=== PATIENT | female | born 1995 | race Caucasian/White ===

== ENCOUNTER 2016-08-06 23:34 | Emergency (ER) | payer BC, OTHER ==
[~2016-08-06] VITALS: Ht 162.6 cm; Wt 71.2 kg
[~2016-08-06 23:34] MED LIST: BEYATAB PO; MULTCAP PO; [UNRECOGNIZED DRUG - OTHER] PO
[2016-08-07 00:29] VITALS: BP 129/82
[2016-08-07] MEDS ORDERED: NS 1,000 ML IV ONE (01:00)
[2016-08-07] MEDS ORDERED: METOCLOPRAMIDE INJ 10MG/2ML VIAL (J2765) IV ONE (01:00)
[2016-08-07 01:21] LABS: BASO % 0.3 % (0.0-1.0); EOS # 0.2 K/mm3 (0.0-0.50); EOS % 1.2 % (0.0-3.0); LARGE UNSTAINED CELL # 0.1 K/mm3 (0.0-0.4); LARGE UNSTAINED CELL % 0.5 % (0.0-4.0); LYMPH # 0.6 K/mm3 (1.5-6.5); LYMPH % 3.7 % (24.0-44.0); MEAN CORPUSCULAR HGB CONC 32.7 g/dl (32.0-36.5); MEAN CORPUSCULAR VOLUME 88.6 fl (80.0-96.0); MONO # 0.6 K/mm3 (0.0-0.8); MONO % 3.7 % (0.0-5.0); NEUTROPHILS # 14.2 K/mm3 (1.8-7.7); NEUTROPHILS % 90.6 % (36.0-66.0); PLATELET COUNT, AUTOMATED 196 k/mm3 (150-450); RED CELL DISTRIBUTION WIDTH 12.2 % (11.5-14.5); WHITE BLOOD COUNT 15.6 K/mm3 (4.0-10.0)
[2016-08-07 01:49] LABS: CONTROL LINE HCG INT CTR LINE PRESENT
[2016-08-07 02:03] LABS: ALBUMIN 3.8 GM/DL (3.2-5.2); ALBUMIN/GLOBULIN RATIO 1.15 (1.00-1.93); ALKALINE PHOSPHATASE 63 U/L (45-117); ALT/SGPT 20 U/L (12-78); ANION GAP 9 MEQ/L (8-16); AST/SGOT 19 U/L (15-37); BILIRUBIN,DIRECT 0.3 MG/DL (0.0-0.2); BLOOD UREA NITROGEN 13 MG/DL (7-18); CALCIUM LEVEL 8.6 MG/DL (8.5-10.1); CARBON DIOXIDE LEVEL 23 MEQ/L (21-32); CHLORIDE LEVEL 111 MEQ/L (98-107); CREATININE FOR GFR 0.91 MG/DL (0.55-1.02); GLOMERULAR FILTRATION RATE > 60.0 (>60); GLUCOSE, FASTING 125 MG/DL (70-105); POTASSIUM SERUM 4.1 MEQ/L (3.5-5.1); SODIUM LEVEL 143 MEQ/L (136-145); TOTAL PROTEIN 7.1 GM/DL (6.4-8.2)
[2016-08-07] MEDS ORDERED: REGL10TA6 PO (02:40)
[2016-08-07] MEDS ORDERED: ZOFR4TAB3 PO (02:40)
== END 2016-08-07 03:37 | disposition home or self-care (01) ==
LOC: EDBD 23:34 → M ED 08-07 00:35
DX: A08.4 Viral intestinal infection, unspecified (principal); Z79.899 Other long term (current) drug therapy
CPT/HCPCS: 36415; 80048; 80076; 83690; 84703; 85025; 93041; 96374; 99284; J2765

== ENCOUNTER → 2016-08-31 | Outpatient (REF) | payer OTHER ==
[~2016-08-31] MED LIST changes: +REGL10TA6 PO; +ZOFR4TAB3 PO
== END ==
LOC: M SFHCWAGY 16:04
PROVIDERS: ATTEND Nurse Practitioner Family
DX: Z12.4 Encounter for screening for malignant neoplasm of cervix (principal)

== ENCOUNTER 2016-10-23 16:10 | Emergency (ER) | payer BC, OTHER ==
[~2016-10-23] VITALS: Ht 162.6 cm; Wt 68.9 kg
[2016-10-23] MEDS ORDERED: NS 1,000 ML IV ONE (16:45)
[2016-10-23] MEDS ORDERED: ONDANSETRON 4MG/2ML VIAL (J2405) IV ONE (16:45)
[2016-10-23] MEDS ORDERED: KETOROLAC 30 MG/ML VIAL (J1885) IV ONE (16:45)
[2016-10-23] MEDS ORDERED: MORPHINE 4 MG/ML 1ML SYRINGE IV ONE (17:15)
[2016-10-23 17:33] LABS: MEAN CORPUSCULAR HEMOGLOBIN 27.8 pg (27.0-33.0); MEAN CORPUSCULAR HGB CONC 32.9 g/dl (32.0-36.5); MEAN CORPUSCULAR VOLUME 84.7 fl (80.0-96.0); PLATELET COUNT, AUTOMATED 209 k/mm3 (150-450); RED CELL DISTRIBUTION WIDTH 13.1 % (11.5-14.5); WHITE BLOOD COUNT 12.6 K/mm3 (4.0-10.0)
[2016-10-23 17:48] LABS: ALBUMIN 3.4 GM/DL (3.2-5.2); ALBUMIN/GLOBULIN RATIO 0.85 (1.00-1.93); ALKALINE PHOSPHATASE 66 U/L (45-117); ALT/SGPT 21 U/L (12-78); AMYLASE 53 U/L (25-115); ANION GAP 5 MEQ/L (8-16); AST/SGOT 19 U/L (15-37); BILIRUBIN,DIRECT 0.1 MG/DL (0.0-0.2); BILIRUBIN,TOTAL 0.4 MG/DL (0.2-1.0); BLOOD UREA NITROGEN 13 MG/DL (7-18); CALCIUM LEVEL 8.2 MG/DL (8.5-10.1); CARBON DIOXIDE LEVEL 27 MEQ/L (21-32); CHLORIDE LEVEL 108 MEQ/L (98-107); CREATININE FOR GFR 0.84 MG/DL (0.55-1.02); GLOMERULAR FILTRATION RATE > 60.0 (>60); GLUCOSE, FASTING 102 MG/DL (70-105); POTASSIUM SERUM 3.2 MEQ/L (3.5-5.1); SODIUM LEVEL 140 MEQ/L (136-145); TOTAL PROTEIN 7.4 GM/DL (6.4-8.2)
[2016-10-23 18:06] LABS: BANDS 6 % (< 11); EOSINOPHILS 3 % (0-5)
[2016-10-23] MEDS ORDERED: POTASSIUM CHLORIDE 10 MEQ SR TABLET PO ONE (18:15)
[2016-10-23] MEDS ORDERED: ISOVUE-370 76% 100ML VIAL (Q9967) As Ordered ONE (18:17)
[2016-10-23] MEDS ORDERED: POTASSIUM CHLORIDE 10% LIQ 20 MEQ/15 ML UDC PO ONE (18:30)
--- NOTE | 2016-10-23 18:44 | REP ---
Clinical: Right-sided abdominal pain with nausea and vomiting. Technique: Axial contrast enhanced images from the lung bases to the pubic symphysis using 100 ml Isovue 370 intravenous contrast material with coronal and sagittal re-formations. Findings: Fluid-filled small and large bowel is most compatible with enterocolitis. No obstruction. No free air. No free fluid or drainable collection identified. Liver, spleen, pancreas, gallbladder, bilateral adrenal glands and kidneys are normal. Pelvis demonstrates normal bladder and age-appropriate uterus/adnexa. No pelvic fluid or ascites. No free air. No adenopathy. Vasculature is normal. Surrounding musculoskeletal structures are intact. Lung bases are clear. Impression: Fluid-filled small large bowel compatible with acute enterocolitis. Signed by Willie Pruitt MD 10/23/2016 06:36 P
[2016-10-23 19:17] VITALS: BP 122/74
--- NOTE | 2016-11-05 14:22 | REP ---
Clinical: Acute abdominal pain. Technique: Estes scale ultrasound using curved array transducer. Findings: The liver and pancreas are normal in contour, size, and echogenicity without focal hepatic or pancreatic lesions identified. The gallbladder is normal without gallstones, wall thickening or pericholecystic fluid. No biliary ductal dilatation is appreciated, and the common bile duct measures 3.0 mm diameter. The right kidney is normal in reniform shape without hydronephrosis and measures 10.9 x 4.7 x 4.6 cm. No ascites. Visualized portions of the abdominal aorta normal. Impression: Normal right upper quadrant and gallbladder abdominal ultrasound. Signed by Willie Pruitt MD 10/23/2016 05:48 P
== END 2016-10-23 19:25 | disposition home or self-care (01) ==
LOC: M ED 18:26
DX: A09 Infectious gastroenteritis and colitis, unspecified (principal); E87.6 Hypokalemia; G43.909 Migraine, unspecified, not intractable, without status migrainosus; Z95.818 Presence of other cardiac implants and grafts; Z79.899 Other long term (current) drug therapy
CPT/HCPCS: 74177; 76705; 80048; 80076; 81001; 81025; 82150; 83690; 85025; 96374; 96375; 99284; J2405; Q9967

== ENCOUNTER 2016-11-06 16:55 | Emergency (ER) | payer BC, OTHER ==
[~2016-11-06] VITALS: Ht 162.6 cm; Wt 69.9 kg
[2016-11-06] MEDS ORDERED: NS 1,000 ML IV SCH (18:02)
[2016-11-06] MEDS ORDERED: ONDANSETRON 4MG/2ML VIAL (J2405) IV ONE (18:15)
[2016-11-06] MEDS ORDERED: MORPHINE 4 MG/ML 1ML SYRINGE IV ONE (18:15)
[2016-11-06] MEDS ORDERED: PANTOPRAZOLE 40MG INJ (PROTONIX) (C9113) IV ONE (18:15)
[2016-11-06 18:29] LABS: BASO % 0.2 % (0.0-1.0); EOS # 0.2 K/mm3 (0.0-0.50); EOS % 1.6 % (0.0-3.0); LARGE UNSTAINED CELL # 0.1 K/mm3 (0.0-0.4); LARGE UNSTAINED CELL % 0.5 % (0.0-4.0); LYMPH # 1.4 K/mm3 (1.5-6.5); LYMPH % 9.6 % (24.0-44.0); MEAN CORPUSCULAR HEMOGLOBIN 27.9 pg (27.0-33.0); MEAN CORPUSCULAR HGB CONC 32.7 g/dl (32.0-36.5); MEAN CORPUSCULAR VOLUME 85.2 fl (80.0-96.0); MONO # 0.7 K/mm3 (0.0-0.8); MONO % 4.7 % (0.0-5.0); NEUTROPHILS # 12.2 K/mm3 (1.8-7.7); NEUTROPHILS % 83.4 % (36.0-66.0); PLATELET COUNT, AUTOMATED 239 k/mm3 (150-450); RED CELL DISTRIBUTION WIDTH 13.6 % (11.5-14.5); WHITE BLOOD COUNT 14.6 K/mm3 (4.0-10.0)
[2016-11-06 18:48] LABS: CONTROL LINE HCG INT CTR LINE PRESENT
[2016-11-06 18:56] LABS: ALBUMIN 3.6 GM/DL (3.2-5.2); ALBUMIN/GLOBULIN RATIO 0.92 (1.00-1.93); ALKALINE PHOSPHATASE 68 U/L (45-117); ALT/SGPT 28 U/L (12-78); ANION GAP 6 MEQ/L (8-16); AST/SGOT 19 U/L (15-37); BILIRUBIN,DIRECT 0.2 MG/DL (0.0-0.2); BILIRUBIN,TOTAL 0.8 MG/DL (0.2-1.0); BLOOD UREA NITROGEN 14 MG/DL (7-18); CARBON DIOXIDE LEVEL 28 MEQ/L (21-32); CHLORIDE LEVEL 108 MEQ/L (98-107); CREATININE FOR GFR 0.83 MG/DL (0.55-1.02); GLOMERULAR FILTRATION RATE > 60.0 (>60); GLUCOSE, FASTING 91 MG/DL (70-105); POTASSIUM SERUM 3.6 MEQ/L (3.5-5.1); SODIUM LEVEL 142 MEQ/L (136-145); TOTAL PROTEIN 7.5 GM/DL (6.4-8.2)
[2016-11-06] MEDS ORDERED: GASTROGRAFIN SOLUTION 30ML (Q9963) As Ordered ONE (19:19)
[2016-11-06] MEDS ORDERED: GASTROGRAFIN SOLUTION 30ML (Q9963) PO ONE ×2 (19:30)
[2016-11-06] MEDS ORDERED: ISOVUE-370 76% 100ML VIAL (Q9967) As Ordered ONE (20:45)
[2016-11-06] MEDS ORDERED: GI COCKTAIL 50ML BTL(HYOSCYAMINE/MAALOX/LIDOCAINE VISCOUS)(1:3:1) PO ONE (21:00)
--- NOTE | 2016-11-06 21:20 | REPUSA ---
CT of the abdomen and pelvis with contrast Clinical statement: Pain. Technique: Multiple axial CT images were obtained from the base of the lungs through the floor of the pelvis utilizing 5 mm axial slices after administration of oral and nonionic intravenous contrast. C oronal and sagittal reconstructions were also obtained. Comparison: 10/23/2016. Findings: Chest: The visualized lung bases are clear. Abdomen: The liver, spleen, pancreas, kidneys, gallbladder, and adrenal glands are unremarkable. The aorta is within normal limits. There is no evidence of abdominal lymphadenopathy or ascites. Pelvis: The bowel is unremarkable, with no obstructive or inflammatory changes. The appendix is madiha l. The urinary bladder is within normal limits. The other pelvic structures appear grossly intact. Th ere is no evidence of pelvic lymphadenopathy or ascites. Bones: There are no suspicious osseous abnormalities seen. Impression: Unremarkable CT examination of the abdomen and pelvis.
[2016-11-06 23:21] VITALS: BP 113/67
== END 2016-11-06 23:22 | disposition home or self-care (01) ==
LOC: M ED 18:22
DX: R10.13 Epigastric pain (principal); R55 Syncope and collapse; Z79.899 Other long term (current) drug therapy
CPT/HCPCS: 74177; 80048; 80076; 81001; 81025; 83690; 84703; 85025; 87086; 96374; 96375; 99283; C9113; J2405; Q9963; Q9967

== ENCOUNTER → 2017-02-22 | Outpatient (REF) | payer OTHER | LOC: M SFHCWAGY 15:51 | PROVIDERS: ATTEND Nurse Practitioner Family | DX: Z11.3 Encounter for screening for infections with a predominantly sexual mode of transmission (principal) ==

== ENCOUNTER → 2017-04-07 | Outpatient (REF) | payer OTHER | LOC: M SFHCPLAZ 10:50 | PROVIDERS: ATTEND Family Medicine | DX: Z13.1 Encounter for screening for diabetes mellitus (principal); Z13.21 Encounter for screening for nutritional disorder ==

== ENCOUNTER 2017-06-04 20:42 | Emergency (ER) | payer BC, OTHER ==
[2017-06-04] MEDS: NS 1,000 ML IV (21:30)
[2017-06-04] MEDS: MECLIZINE 25 MG TABLET PO (21:30)
[2017-06-04 22:21] LABS: BASO % 0.6 % (0.0-1.0); EOS # 0.3 10^3/uL (0.0-0.50); EOS % 4.2 % (0.0-3.0); IMMATURE GRANULOCYTE % 0.1 % (0-0); LYMPH # 2.9 10^3/uL (1.5-6.5); MEAN CORPUSCULAR HGB CONC 33.8 g/dl (32.0-36.5); MEAN CORPUSCULAR VOLUME 85.7 fl (80.0-96.0); MONO # 0.6 10^3/uL (0.0-0.8); MONO % 7.9 % (0.0-5.0); NEUTROPHILS # 3.3 10^3/uL (1.8-7.7); NEUTROPHILS % 46.2 % (36.0-66.0); PLATELET COUNT, AUTOMATED 209 10^3/uL (150-450); RED CELL DISTRIBUTION WIDTH 13.2 % (11.5-14.5); WHITE BLOOD COUNT 7.1 10^3/uL (4.0-10.0)
[2017-06-04 22:24] LABS: KETONE, URINE AUTO RFX NEGATIVE (NEGATIVE); LEUKOCYTE ESTERASE UR AUTO RFX NEGATIVE (NEGATIVE); NITRITE, URINE AUTO RFX NEGATIVE (NEGATIVE); RBC, URINE AUTO RFX 0 /HPF (0-3); SPECIFIC GRAVITY UR AUTO RFX 1.001 (1.002-1.035); SQUAM EPITHELIAL CELL UR AURFX 0 /HPF (0-6); WBC, URINE AUTO RFX 0 /HPF (0-3)
[2017-06-04 22:50] LABS: ALBUMIN 3.5 GM/DL (3.2-5.2); ALBUMIN/GLOBULIN RATIO 1.03 (1.00-1.93); ALKALINE PHOSPHATASE 70 U/L (45-117); ALT/SGPT 20 U/L (12-78); ANION GAP 7 MEQ/L (8-16); AST/SGOT 18 U/L (7-37); BILIRUBIN,DIRECT 0.2 MG/DL (0.0-0.2); BILIRUBIN,TOTAL 0.7 MG/DL (0.2-1.0); BLOOD UREA NITROGEN 15 MG/DL (7-18); CALCIUM LEVEL 8.8 MG/DL (8.5-10.1); CARBON DIOXIDE LEVEL 27 MEQ/L (21-32); CHLORIDE LEVEL 109 MEQ/L (98-107); CREATININE FOR GFR 0.76 MG/DL (0.55-1.02); GLOMERULAR FILTRATION RATE > 60.0 (>60); GLUCOSE, FASTING 83 MG/DL (70-105); POTASSIUM SERUM 3.6 MEQ/L (3.5-5.1); SODIUM LEVEL 143 MEQ/L (136-145); TOTAL PROTEIN 6.9 GM/DL (6.4-8.2)
[2017-06-04 22:52] LABS: METHADONE URINE NEGATIVE (NEGATIVE)
[2017-06-04 23:19] LABS: CONTROL LINE UCG INT CTR LINE PRESENT
== END 2017-06-04 23:33 | disposition home or self-care (01) ==
LOC: M ED 20:42
DX: R42 Dizziness and giddiness (principal)
CPT/HCPCS: 71020

== ENCOUNTER → 2017-06-11 | Outpatient (REF) | payer OTHER | LOC: M LAB REF 13:56 | DX: J02.9 Acute pharyngitis, unspecified (principal) ==

== ENCOUNTER → 2017-10-12 | Outpatient (CLI) | payer BC, OTHER ==
[2017-10-12 13:22] LABS: BASO % 0.4 % (0.0-1.0); EOS # 0.1 10^3/uL (0.0-0.50); EOS % 1.2 % (0.0-3.0); HEMATOCRIT 39.8 % (36.0-47.0); HEMOGLOBIN 13.2 g/dl (12.0-15.5); IMMATURE GRANULOCYTE % 0.2 % (0-3.0); LYMPH # 2.1 10^3/uL (1.5-6.5); LYMPH % 24.2 % (24.0-44.0); MEAN CORPUSCULAR HEMOGLOBIN 28.8 pg (27.0-33.0); MEAN CORPUSCULAR HGB CONC 33.2 g/dl (32.0-36.5); MEAN CORPUSCULAR VOLUME 86.7 fl (80.0-96.0); MONO # 0.6 10^3/uL (0.0-0.8); MONO % 7.2 % (0.0-5.0); NEUTROPHILS # 5.7 10^3/uL (1.8-7.7); NEUTROPHILS % 66.8 % (36.0-66.0); PLATELET COUNT, AUTOMATED 205 10^3/uL (150-450); RED BLOOD COUNT 4.59 10^6/uL (4.00-5.40); RED CELL DISTRIBUTION WIDTH 13.5 % (11.5-14.5); WHITE BLOOD COUNT 8.5 10^3/uL (4.0-10.0)
[2017-10-12 15:05] LABS: CHLAMYDIA DNA AMPLIFICATION NEGATIVE (NEGATIVE); GC DNA AMPLIFICATION NEGATIVE (NEGATIVE)
[2017-10-13 08:55] LABS: RUBELLA IgG QUALITATIVE IMMUNE (IMMUNE)
[2017-10-13 09:15] LABS: HBsAg Prenatal NEGATIVE (NEGATIVE)
[2017-10-13 09:23] LABS: HEPATITIS C VIRUS ABY INDEX < 0.0 INDEX (<0.8)
[2017-10-13 09:24] LABS: HIV 1&2 SCREEN CENTAUR NEGATIVE (NEGATIVE)
== END ==
LOC: M SMT 09:44
DX: Z36.89 Encounter for other specified antenatal screening (principal); Z3A.09 9 weeks gestation of pregnancy
CPT/HCPCS: 86762

== ENCOUNTER → 2017-12-30 | Outpatient (CLI) | payer BC, OTHER, MEDICAID | LOC: M RAD 12:36 | DX: Z34.82 Encounter for supervision of other normal pregnancy, second trimester (principal) | CPT/HCPCS: 76811 ==

== ENCOUNTER 2018-02-01 12:10 | Outpatient (CLI) | payer BC, MEDICAID, OTHER ==
[2018-02-01 13:12] LABS: BASO % 0.2 % (0.0-1.0); EOS # 0.1 10^3/uL (0.0-0.50); EOS % 1.2 % (0.0-3.0); HEMOGLOBIN 11.3 g/dl (12.0-15.5); IMMATURE GRANULOCYTE % 0.3 % (0-3.0); LYMPH % 22.2 % (24.0-44.0); MEAN CORPUSCULAR HEMOGLOBIN 31.4 pg (27.0-33.0); MEAN CORPUSCULAR HGB CONC 35.3 g/dl (32.0-36.5); MEAN CORPUSCULAR VOLUME 88.9 fl (80.0-96.0); MONO # 0.7 10^3/uL (0.0-0.8); MONO % 7.9 % (0.0-5.0); NEUTROPHILS # 6.3 10^3/uL (1.8-7.7); NEUTROPHILS % 68.2 % (36.0-66.0); PLATELET COUNT, AUTOMATED 192 10^3/uL (150-450); RED CELL DISTRIBUTION WIDTH 12.9 % (11.5-14.5); WHITE BLOOD COUNT 9.2 10^3/uL (4.0-10.0)
[2018-02-01 13:32] LABS: ALBUMIN 2.6 GM/DL (3.2-5.2); ALBUMIN/GLOBULIN RATIO 0.72 (1.00-1.93); ALKALINE PHOSPHATASE 116 U/L (45-117); ALT/SGPT 29 U/L (12-78); ANION GAP 9 MEQ/L (8-16); AST/SGOT 18 U/L (7-37); BILIRUBIN,TOTAL 0.6 MG/DL (0.2-1.0); BLOOD UREA NITROGEN 7 MG/DL (7-18); CALCIUM LEVEL 8.4 MG/DL (8.5-10.1); CARBON DIOXIDE LEVEL 23 MEQ/L (21-32); CHLORIDE LEVEL 111 MEQ/L (98-107); CREATININE FOR GFR 0.56 MG/DL (0.55-1.30); GLOMERULAR FILTRATION RATE > 60.0 (>60); GLUCOSE, FASTING 70 MG/DL (70-100); POTASSIUM SERUM 3.8 MEQ/L (3.5-5.1); SODIUM LEVEL 143 MEQ/L (136-145); TOTAL PROTEIN 6.2 GM/DL (6.4-8.2)
[2018-02-01] MEDS: ACETAMINOPHEN 500 MG TAB PO ×2 (14:34)
== END 2018-02-01 16:49 | disposition home or self-care (01) ==
LOC: M LDO 12:10
DX: O99.89 Other specified diseases and conditions complicating pregnancy, childbirth and the puerperium (principal); Z3A.25 25 weeks gestation of pregnancy; R07.81 Pleurodynia; R10.9 Unspecified abdominal pain; V49.49XA Driver injured in collision with other motor vehicles in traffic accident, initial encounter
CPT/HCPCS: 76819

== ENCOUNTER → 2018-02-02 | Outpatient (CLI) | payer OTHER, BC, MEDICAID ==
[2018-02-02 13:12] LABS: HEMOGLOBIN 11.7 g/dl (12.0-15.5); MEAN CORPUSCULAR HEMOGLOBIN 31.5 pg (27.0-33.0); MEAN CORPUSCULAR HGB CONC 34.4 g/dl (32.0-36.5); MEAN CORPUSCULAR VOLUME 91.4 fl (80.0-96.0); PLATELET COUNT, AUTOMATED 202 10^3/uL (150-450); RED BLOOD COUNT 3.72 10^6/uL (4.00-5.40); RED CELL DISTRIBUTION WIDTH 13.2 % (11.5-14.5); WHITE BLOOD COUNT 9.3 10^3/uL (4.0-10.0)
[2018-02-02 14:42] LABS: GLUCOSE CHALLENGE TEST 1 HOUR 91 MG/DL (LESS THAN 140)
== END ==
LOC: M SMT 09:21
DX: Z36.89 Encounter for other specified antenatal screening (principal); Z3A.00 Weeks of gestation of pregnancy not specified
CPT/HCPCS: 82950

== ENCOUNTER 2018-03-17 17:39 | Outpatient (CLI) | payer BC, OTHER, MEDICAID | END 2018-03-17 18:49 | disposition home or self-care (01) | LOC: M LDO 17:39 | DX: O36.8130 Decreased fetal movements, third trimester, not applicable or unspecified (principal); O26.893 Other specified pregnancy related conditions, third trimester; R10.30 Lower abdominal pain, unspecified; Z3A.31 31 weeks gestation of pregnancy | CPT/HCPCS: 76815 ==

== ENCOUNTER → 2018-04-14 | Outpatient (REF) | payer OTHER, MEDICAID | LOC: M LAB REF 15:46 | DX: Z34.83 Encounter for supervision of other normal pregnancy, third trimester (principal) ==

== ENCOUNTER 2018-04-22 19:05 | Outpatient (CLI) | payer OTHER, MEDICAID | END 2018-04-22 20:30 | disposition home or self-care (01) | LOC: M LDO 19:05 | DX: O47.1 False labor at or after 37 completed weeks of gestation (principal); Z3A.37 37 weeks gestation of pregnancy | CPT/HCPCS: 59025 ==

== ENCOUNTER 2018-05-02 05:56 | Inpatient (IN) | payer OTHER, MEDICAID ==
[2018-05-02 07:04] LABS: HEMATOCRIT 36.1 % (36.0-47.0); MEAN CORPUSCULAR HEMOGLOBIN 31.2 pg (27.0-33.0); MEAN CORPUSCULAR VOLUME 86.6 fl (80.0-96.0); PLATELET COUNT, AUTOMATED 185 10^3/uL (150-450); RED BLOOD COUNT 4.17 10^6/uL (4.00-5.40); WHITE BLOOD COUNT 13.8 10^3/uL (4.0-10.0)
[2018-05-02] MEDS: LACTATED RINGER'S 1000 ML IV (07:05)
[2018-05-02] MEDS: SERTRALINE HCL 50 MG TAB PO (10:17)
[2018-05-02] MEDS: PRENATAL VITAMINS CHEWABLE TABLET PO (10:17)
[2018-05-02] MEDS ORDERED: FENTANYL 2MCG/ML ROPIVACAINE 0.2% IN 0.9% NACL 200ML IVBAG As Ordered (11:33)
[2018-05-02] MEDS: FENTANYL/ROPIVACAINE/NACL BAG 200 ML EPIDURAL (12:01)
[2018-05-02] MEDS ORDERED: OXYTOCIN 30 UNITS IN 0.9% NaCl 500ML IV BAG (J2590) As Ordered (12:02)
[2018-05-02] MEDS ORDERED: EPIDURAL COMMENT XX (12:30)
[2018-05-02] MEDS ORDERED: EPIDURAL/PCA KEYS XX (12:30)
[2018-05-02] MEDS ORDERED: LACTATED RINGER'S 1000 ML IV (12:30)
[2018-05-02] MEDS ORDERED: REFRIGERATOR IV KEYS XX (12:30)
[2018-05-02] MEDS ORDERED: NALOXONE INJ 0.4 MG/1 ML VIAL (J2310) IV (12:30)
[2018-05-02] MEDS ORDERED: ONDANSETRON 4MG/2ML VIAL (J2405) IV ×2 (12:30→20:30)
[2018-05-02] MEDS ORDERED: ePHEDrine SULFATE 25 MG/5 ML(5MG/ML) SYRINGE IV (12:30)
[2018-05-02] MEDS ORDERED: diphenhydrAMINE INJ 50MG/ML VIAL (J1200) IV (12:30)
[2018-05-02 19:43] LABS: CORD GAS ABE A -9.1; CORD GAS HCO3 A 20.8 MEQ/L; CORD GAS O2 SAT A 28.8 %; CORD GAS PCO2 A 62.8 mmHg; CORD GAS PH A 7.138 UNITS; CORD GAS PO2 A 18.6 mmHg; CORD GAS SBC A 15.8 MEQ/L; CORD GAS TCO2 A 22.7 MEQ/L
[2018-05-02 19:45] LABS: CORD GAS ABE V -4.7; CORD GAS HCO3 V 20.6 MEQ/L; CORD GAS PCO2 V 38.8 mmHg; CORD GAS PH V 7.342 UNITS; CORD GAS PO2 V 27.8 mmHg; CORD GAS SBC V 19.9 MEQ/L; CORD GAS TCO2 V 21.7 MEQ/L
[2018-05-02] MEDS ORDERED: METHYLERGONOVINE MALEATE 0.2 MG TAB PO (20:30)
[2018-05-02] MEDS ORDERED: RHOGAM 300 MCG (1500 IU) INJ (J2790) IM (20:30)
[2018-05-02] MEDS: OXYTOCIN DRIP 30 UNITS in APPROPRIATE DILUENT 1 EA IV (20:30)
[2018-05-02] MEDS ORDERED: MEASLES,MUMPS,RUBELLA VACCINE INJ (MMR-II) (90707) SC (20:30)
[2018-05-02] MEDS: LIDOCAINE 1% MDV 20ML VIAL INFIL (20:30)
[2018-05-02] MEDS ORDERED: IBUPROFEN 800 MG TAB PO (20:30)
[2018-05-02] MEDS ORDERED: DIBUCAINE 1% OINTMENT 30GM TOP (20:30)
[2018-05-03] MEDS: ACETAMINOPHEN 500 MG TAB PO ×2 (00:47→15:28)
[2018-05-03] MEDS: PRENATAL VITAMINS CHEWABLE TABLET PO (09:22)
[2018-05-03] MEDS: SERTRALINE HCL 50 MG TAB PO (11:37)
[2018-05-03] MEDS: DOCUSATE SODIUM 100 MG CAP PO (20:41)
[2018-05-04] MEDS: ACETAMINOPHEN 500 MG TAB PO (01:04)
[2018-05-04] MEDS: PRENATAL VITAMINS CHEWABLE TABLET PO (09:40)
[2018-05-04] MEDS: SERTRALINE HCL 50 MG TAB PO (09:40)
== END 2018-05-04 12:00 | disposition home or self-care (01) | DRG 807 ==
LOC: M LDO 05:56 → M LDI 06:44 → M OBS 22:20
PROVIDERS: Advanced Practice Midwife
PROC: 10E0XZZ Delivery of Products of Conception, External Approach (ICD-10-PCS; principal; 2018-05-02)
PROC: 0HQ9XZZ Repair Perineum Skin, External Approach (ICD-10-PCS; 2018-05-02)
DX: O99.344 Other mental disorders complicating childbirth (principal); Z37.0 Single live birth; Z3A.38 38 weeks gestation of pregnancy; O70.0 First degree perineal laceration during delivery; O69.81X0 Labor and delivery complicated by cord around neck, without compression, not applicable or unspecified; F32.9 Major depressive disorder, single episode, unspecified; O77.0 Labor and delivery complicated by meconium in amniotic fluid

== ENCOUNTER → 2018-08-29 | Outpatient (REF) | payer OTHER ==
[~2018-08-29] MED LIST changes: +ACET500T15 PO; +FOLI800T PO; +IRON1TAB PO; +MAPA500T2 PO; +MECL-68 PO; +MOTR200T44 PO; +PRENTAB55 PO; +TUMS500C PO; +ZOFR4TAB14 PO; -ZOFR4TAB3 PO; +ZOLO50TA PO
[2018-08-31 14:12] LABS: HPV HYBRID CAPTURE II Negative (Negative)
== END ==
LOC: M SFHCWAGY 13:42
PROVIDERS: ATTEND Nurse Practitioner Family
DX: Z12.4 Encounter for screening for malignant neoplasm of cervix (principal)

== ENCOUNTER → 2018-09-27 | Outpatient (CLI) | payer OTHER ==
[2018-09-27 20:04] LABS: FREE T4 1.02 NG/DL (0.76-1.46); THYROID STIMULATING HORMONE 1.24 uIU/ML (0.358-3.740)
== END ==
LOC: M WUC 16:07
PROVIDERS: ATTEND Advanced Practice Midwife
DX: F53.0 Postpartum depression (principal)

== ENCOUNTER → 2018-11-04 | Outpatient (RCR) | payer OTHER | LOC: M PT 10-17 13:32 | PROVIDERS: ATTEND Otolaryngology | DX: M26.69 Other specified disorders of temporomandibular joint (principal) ==

== ENCOUNTER → 2018-11-09 | Outpatient (REF) | payer OTHER | LOC: M SFHCWAGY 16:52 | PROVIDERS: ATTEND Nurse Practitioner Family | DX: R10.2 Pelvic and perineal pain (principal) ==

== ENCOUNTER 2018-11-22 09:42 | Outpatient (RCR) | payer OTHER | END 2018-12-04 | LOC: M PT 09:42 | PROVIDERS: ATTEND Otolaryngology | DX: M26.69 Other specified disorders of temporomandibular joint (principal) ==

== ENCOUNTER 2020-04-16 16:35 | Outpatient (CLI) | payer BC, OTHER ==
[~2020-04-16] VITALS: Ht 162.6 cm; Wt 75.7 kg
[~2020-04-16 16:35] MED LIST changes: -MECL-68 PO; +MECL1TAB31 PO
[2020-04-16 16:50] VITALS: BP 110/78
[2020-04-16] MEDS ORDERED: PYRI100L PO (17:26)
[2020-04-16] MEDS ORDERED: TUMS500C PO (17:26)
--- NOTE | 2020-04-16 18:07 | IPNPDOC ---
Obstetrical Progress Note Date of Service Apr 16, 2020 Subjective 24 yo at 29 weeks presents to triage with leakage of fluid at 1:30 pm today. She did not continue to leak. No pain. She called her office professionals who suggested she get evaluated at a hospital. No pain. She plans an at home . Objective Vital Signs Date Time Temp Pulse Resp B/P (MAP) Pulse Ox O2 Delivery O2 Flow Rate FiO2 04/16/20 16:50 99.0 117 20 110/78 (89) Assessment Variability: Moderate Accelerations: Positive Decelerations: None Heart Rate Tracing: Category I Tocometer Contractions: No Sterile Vaginal Examination Dilation: None Cervical Consistency: Firm Assessment and Plan Age: 24 : 2 Term: 1 EGA at Admission: 29 Status: Reassuring Additional Comments SSE: negative fern, negative nitrazine, negative pool. A/P 24 at 29 weeks wiht no evidence of ROM Pt reassured D/C home fu with OB provider for care ALKA FUENTES MD Apr 16, 2020 18:07
== END 2020-04-16 18:20 | disposition home or self-care (01) ==
LOC: M LDO 16:35
PROVIDERS: ATTEND Specialist
DX: O26.893 Other specified pregnancy related conditions, third trimester (principal); Z3A.29 29 weeks gestation of pregnancy
CPT/HCPCS: 59025; G0378; G0463

== ENCOUNTER 2020-09-25 11:37 | Emergency (ER) | payer BC, OTHER ==
[~2020-09-25] VITALS: Ht 162.6 cm; Wt 70.0 kg
[~2020-09-25 11:37] MED LIST changes: +FOLI0.8T3 PO; -FOLI800T PO; +PYRI100L PO
[2020-09-25] MEDS ORDERED: MEDR150I10 SQ (11:49)
[2020-09-25 13:12] LABS: HEMATOCRIT 43.1 % (36.0-47.0); HEMOGLOBIN 14.4 g/dl (12.0-15.5); MEAN CORPUSCULAR HEMOGLOBIN 29.4 pg (27.0-33.0); MEAN CORPUSCULAR HGB CONC 33.4 g/dl (32.0-36.5); MEAN CORPUSCULAR VOLUME 88.1 fl (80.0-96.0); PLATELET COUNT, AUTOMATED 218 10^3/uL (150-450); RED BLOOD COUNT 4.89 10^6/uL (4.00-5.40); WHITE BLOOD COUNT 6.3 10^3/uL (4.0-10.0)
[2020-09-25 13:27] LABS: AMPHETAMINES LEVEL URINE NEGATIVE (NEGATIVE); BARBITURATES URINE NEGATIVE (NEGATIVE); BENZODIAZEPINES URINE NEGATIVE (NEGATIVE); CANNABINOIDS URINE NEGATIVE (NEGATIVE); COCAINE METABOLITE URINE NEGATIVE (NEGATIVE); METHADONE URINE NEGATIVE (NEGATIVE); OPIATES URINE NEGATIVE (NEGATIVE); PHENCYCLIDINE URINE NEGATIVE (NEGATIVE)
[2020-09-25 13:38] LABS: ACETAMINOPHEN LEVEL < 2.0 UG/ML (10.0-30.0); ALBUMIN 3.9 GM/DL (3.2-5.2); ALT/SGPT 25 U/L (12-78); BILIRUBIN,DIRECT 0.3 MG/DL (0.0-0.2); BLOOD UREA NITROGEN 16 MG/DL (7-18); CALCIUM LEVEL 9.2 MG/DL (8.5-10.1); CARBON DIOXIDE LEVEL 27 MEQ/L (21-32); CHLORIDE LEVEL 112 MEQ/L (98-107); CREATININE FOR GFR 0.95 MG/DL (0.55-1.30); ETHYL ALCOHOL (ETHANOL) < 0.003 % (0.000-0.010); GLOMERULAR FILTRATION RATE > 60.0 (>60); GLUCOSE, FASTING 106 MG/DL (70-100); POTASSIUM SERUM 4.5 MEQ/L (3.5-5.1); SALICYLATE LEVEL < 1.7 MG/DL (5.0-30.0); SODIUM LEVEL 144 MEQ/L (136-145); TOTAL PROTEIN 7.1 GM/DL (6.4-8.2)
[2020-09-25 17:12] VITALS: BP 114/67
== END 2020-09-25 17:19 | disposition home or self-care (01) ==
LOC: M ED 11:37
DX: F33.9 Major depressive disorder, recurrent, unspecified (principal); J30.2 Other seasonal allergic rhinitis; J30.81 Allergic rhinitis due to animal (cat) (dog) hair and dander

== ENCOUNTER → 2021-07-24 | Outpatient (CLI) | payer OTHER ==
[~2021-07-24] MED LIST changes: +MEDR150I10 SQ
== END ==
LOC: M PLALAB 09:22
PROVIDERS: ATTEND Student in an Organized Health Care Education/Training Program
DX: Z13.88 Encounter for screening for disorder due to exposure to contaminants (principal)
CPT/HCPCS: 36415; 83655; 98925; G0463

== ENCOUNTER → 2023-11-11 | Outpatient (REF) | payer OTHER ==
[~2023-11-11] MED LIST changes: +MECL-209 PO; -MECL1TAB31 PO; -MEDR150I10 SQ; +MEDR150I13 SQ
[2023-11-11 13:56] LABS: URINE PREG TEST NEGATIVE (NEGATIVE)
== END ==
LOC: M SFHCWAGY 12:22
PROVIDERS: ATTEND Nurse Practitioner Family
DX: R22.9 Localized swelling, mass and lump, unspecified (principal)

== ENCOUNTER 2024-02-06 19:37 | Emergency (ER) | payer OTHER ==
[~2024-02-06] VITALS: Ht 162.6 cm; Wt 67.2 kg
[2024-02-06 19:37] VITALS: BP 129/84; TEMP 97.5; O2SAT 100
[2024-02-06 21:18] LABS: BASO # 0.1 10^3/uL (0.0-0.2); BASO % 0.7 % (0.0-1.0); EOS # 0.2 10^3/uL (0.0-0.5); EOS % 3.3 % (0.0-3.0); HEMATOCRIT 41.8 % (36.0-47.0); HEMOGLOBIN 13.8 g/dl (12.0-15.5); LYMPH # 2.6 10^3/uL (1.5-5.0); LYMPH % 36.1 % (24.0-44.0); MEAN CORPUSCULAR HEMOGLOBIN 28.8 pg (27.0-33.0); MEAN CORPUSCULAR VOLUME 87.1 fl (80.0-96.0); MONO # 0.6 10^3/uL (0.0-0.8); MONO % 7.6 % (2.0-8.0); NEUTROPHILS # 3.8 10^3/uL (1.5-8.5); NEUTROPHILS % 52.2 % (36.0-66.0); PLATELET COUNT, AUTOMATED 183 10^3/uL (150-450); WHITE BLOOD COUNT 7.3 10^3/uL (4.0-10.0)
[2024-02-06 21:26] LABS: ERYTHROCYTE SEDIMENTATION RATE 6 mm/hr (0-20)
[2024-02-06 21:47] LABS: C REACTIVE PROTEIN QUANTITATIV < 0.40 MG/DL (<1.0)
[2024-02-06] MEDS ORDERED: ISOVUE-370 76% 100ML VIAL As Ordered ONE (21:48)
[2024-02-06 21:49] LABS: BLOOD UREA NITROGEN 17 MG/DL (9-23); CALCIUM LEVEL 9.1 MG/DL (8.5-10.1); CARBON DIOXIDE LEVEL 26 MMOL/L (20-31); CHLORIDE LEVEL 111 MMOL/L (98-107); CREATININE FOR GFR 0.76 MG/DL (0.55-1.30); GLOMERULAR FILTRATION RATE > 60.0 (>60); GLUCOSE, FASTING 87 MG/DL (60-100); POTASSIUM SERUM 3.9 MMOL/L (3.5-5.1); SODIUM LEVEL 142 MMOL/L (136-145)
[2024-02-06] MEDS: GABAPENTIN 300 MG CAP PO ONE (21:55)
[2024-02-06 22:01] LABS: HCG, SERUM QUALITATIVE NEGATIVE (NEGATIVE)
[2024-02-06] MEDS ORDERED: GABA-282 PO (23:19)
== END 2024-02-06 23:34 | disposition home or self-care (01) ==
LOC: M ED 19:37
DX: R20.2 Paresthesia of skin (principal); Z91.09 Other allergy status, other than to drugs and biological substances; Z79.810 Long term (current) use of selective estrogen receptor modulators (SERMs); Z79.899 Other long term (current) drug therapy
CPT/HCPCS: 36415; 70450; 70496; 80048; 84703; 85025; 85652; 86140; 93005; 99284; Q9967